=== PATIENT | female | born 1965 | race African-American/Black ===

== ENCOUNTER 2018-02-10 16:49 | Inpatient (IN) | payer OTHER ==
[2018-02-10] MEDS ORDERED: LABETALOL HCL 20MG INJ IV (17:30)
[2018-02-10 17:31] LABS: ADD MAN DIFF? NO
[2018-02-10 17:33] LABS: WHITE BLOOD COUNT 5.2 10^3/ul (4.8-10.8)
[2018-02-10 17:33] LABS: BASOPHIL # 0.1 10^3/ul (0.0-0.1); BASOPHILS % 1.2 % (0.0-2.0); EOSINOPHILS # 0.3 10^3/ul (0.0-0.5); EOSINOPHILS % 5.8 % (0.0-7.0); HEMOGLOBIN 9.7 g/dl (12.0-16.0); LYMPHOCYTES # 1.4 10^3/ul (0.8-2.9); LYMPHOCYTES % 27.4 % (15.0-51.0); MEAN CORPUSCULAR HEMOGLOBIN 27.6 pg (29.0-33.0); MEAN CORPUSCULAR HGB CONC 32.3 g/dl (32.0-37.0); MEAN CORPUSCULAR VOLUME 85.5 fl (82.0-101.0); MEAN PLATELET VOLUME 10.3 fl (7.4-10.4); MONOCYTE # 0.6 10^3/ul (0.3-0.9); MONOCYTES % 10.8 % (0.0-11.0); NEUTROPHIL # 2.8 10^3/ul (1.6-7.5); NEUTROPHILS % 54.6 % (39.0-77.0); PLATELET COUNT 217 10^3/UL (140-415); RED BLOOD COUNT 3.51 10^6/ul (4.20-5.40); RED CELL DISTRIBUTION WIDTH 16.7 % (11.5-14.5)
[2018-02-10] MEDS: NICARDipine HCL 30 MG CAPSULE PO (17:35)
[2018-02-10] MEDS: DIPHENHYDRAMINE 25 MG CAP PO (17:36)
[2018-02-10 17:54] LABS: ALANINE AMINOTRANSFERASE 27 IU/L (13-69); ALBUMIN/GLOBULIN RATIO 1.29; ALKALINE PHOSPHATASE 224 IU/L (42-121); ANION GAP 21 (8-16); ASPARTATE AMINO TRANSFERASE 21 IU/L (15-46); BLOOD UREA NITROGEN 70 mg/dl (7-20); CALCIUM 8.9 mg/dl (8.4-10.2); CARBON DIOXIDE 28 mmol/L (21-31); CHLORIDE 98 mmol/L (97-110); CREATININE 9.51 mg/dl (0.44-1.00); GLUCOSE 121 mg/dl (70-220); LIPASE 82 U/L (23-300); SODIUM 141 mmol/L (135-144); TOTAL PROTEIN 7.1 g/dl (6.1-8.1)
[2018-02-10 17:56] LABS: POTASSIUM 5.5 mmol/L (3.5-5.1)
[2018-02-10 18:05] LABS: TROPONIN-I 0.055 ng/ml (0.000-0.120)
[2018-02-10] MEDS ORDERED: LABETALOL HCL 20MG INJ (18:10)
[2018-02-10] MEDS: ACETAMINOPHEN 325 MG TAB PO (18:19)
[2018-02-10] MEDS: LABETALOL HCL 20MG INJ IV (18:19)
[2018-02-10 18:46] LABS: PHOSPHORUS 8.9 mg/dl (2.5-4.9)
[2018-02-10] MEDS: hydrOXYzine HCL 25 MG TAB PO (18:54)
[2018-02-10] MEDS: DIPHENHYDRAMINE 50 MG INJ IV (19:34)
[2018-02-11] MEDS: NA POLYST SULFON 15 GM/60 ML BTL PO (00:38)
[2018-02-11] MEDS: hydrALAzine 20 MG INJ IV ×2 (00:38→16:04)
[2018-02-11] MEDS: DIPHENHYDRAMINE 50 MG INJ IV ×4 (00:38→17:38)
[2018-02-11] MEDS: ACETAMINOPHEN 325 MG TAB PO (00:39)
[2018-02-11] MEDS ORDERED: LABETALOL 200 MG TAB PO ×2 (05:00→09:00)
[2018-02-11] MEDS: LABETALOL 100 MG TAB PO ×2 (05:08→23:53)
[2018-02-11] MEDS: HYDROCODONE/APAP (5/325) TAB PO (05:09)
[2018-02-11] MEDS ORDERED: LABETALOL 100 MG TAB PO (09:00)
[2018-02-11 09:50] LABS: ANION GAP 21 (8-16); BLOOD UREA NITROGEN 72 mg/dl (7-20); CALCIUM 8.5 mg/dl (8.4-10.2); CARBON DIOXIDE 26 mmol/L (21-31); CHLORIDE 99 mmol/L (97-110); CREATININE 9.85 mg/dl (0.44-1.00); GLUCOSE 142 mg/dl (70-220); POTASSIUM 4.9 mmol/L (3.5-5.1); SODIUM 141 mmol/L (135-144)
[2018-02-11] MEDS ORDERED: SODIUM CHLORIDE 0.9% 1L BAG IV (12:30)
[2018-02-11] MEDS ORDERED: ALBUMIN HUMAN 25% 100 ML IV (12:30)
[2018-02-11] MEDS: NIFEdipine (XL) 30 MG TAB PO (13:08)
[2018-02-11] MEDS: morphine 2 MG INJ IV (14:14)
[2018-02-11 15:33] LABS: HEPATITIS B SURFACE ANTIGEN NEGATIVE (NEGATIVE)
[2018-02-11 15:50] LABS: HEPATITIS B SURFACE ANTIBODY POSITIVE (NEGATIVE)
[2018-02-11] MEDS: SEVELAMER CARBONATE 800 MG TABLET PO (17:38)
[2018-02-11] MEDS: CYPROHEPTADINE 4 MG TAB PO ×2 (18:00→22:00)
[2018-02-11] MEDS: LORAZEPAM 2 MG INJ IV (18:19)
[2018-02-11] MEDS: QUETIAPINE 100 MG TAB PO (18:19)
[2018-02-11] MEDS: LEVETIRACETAM 500 MG TAB PO (21:37)
[2018-02-11] MEDS: FUROSEMIDE 40 MG TAB PO (21:38)
[2018-02-12] MEDS: CYPROHEPTADINE 4 MG TAB PO (06:00)
[2018-02-12] MEDS: PANTOPRAZOLE (EC) 40 MG TAB PO (06:35)
[2018-02-12] MEDS: QUETIAPINE 100 MG TAB PO (09:51)
[2018-02-12] MEDS: SEVELAMER CARBONATE 800 MG TABLET PO ×3 (09:51→17:40)
[2018-02-12] MEDS: LABETALOL 100 MG TAB PO ×2 (09:52→20:41)
[2018-02-12] MEDS: NIFEdipine (XL) 30 MG TAB PO (09:52)
[2018-02-12] MEDS: FUROSEMIDE 40 MG TAB PO ×2 (09:53→20:40)
[2018-02-12] MEDS: LEVETIRACETAM 500 MG TAB PO ×2 (09:53→20:40)
[2018-02-12] MEDS: DIPHENHYDRAMINE 50 MG INJ IV ×3 (10:41→20:51)
[2018-02-12] MEDS: morphine 2 MG INJ IV ×3 (10:43→21:48)
[2018-02-12] MEDS: LORAZEPAM 2 MG INJ IV ×2 (11:23→23:25)
[2018-02-12] MEDS: MEGESTROL (40 MG/ML) 10ML CUP PO ×2 (15:42→20:39)
[2018-02-13] MEDS: DIPHENHYDRAMINE 50 MG INJ IV ×4 (00:27→22:36)
[2018-02-13] MEDS: morphine 2 MG INJ IV ×2 (01:48→08:09)
[2018-02-13] MEDS: PANTOPRAZOLE (EC) 40 MG TAB PO (06:04)
[2018-02-13] MEDS: SEVELAMER CARBONATE 800 MG TABLET PO ×3 (08:08→18:42)
[2018-02-13] MEDS: MEGESTROL (40 MG/ML) 10ML CUP PO (08:09)
[2018-02-13] MEDS: LEVETIRACETAM 500 MG TAB PO ×2 (08:09→20:29)
[2018-02-13] MEDS: QUETIAPINE 100 MG TAB PO (08:09)
[2018-02-13] MEDS: LORAZEPAM 2 MG INJ IV ×2 (08:46→20:32)
[2018-02-13] MEDS: NIFEdipine (XL) 30 MG TAB PO (09:00)
[2018-02-13] MEDS: FUROSEMIDE 40 MG TAB PO ×2 (09:00→20:29)
[2018-02-13] MEDS: LABETALOL 100 MG TAB PO ×2 (09:00→20:28)
[2018-02-13 15:05] LABS: ADD MAN DIFF? NO
[2018-02-13 15:08] LABS: WHITE BLOOD COUNT 3.7 10^3/ul (4.8-10.8)
[2018-02-13 15:08] LABS: BASOPHILS % 0.5 % (0.0-2.0); EOSINOPHILS # 0.1 10^3/ul (0.0-0.5); EOSINOPHILS % 3.5 % (0.0-7.0); HEMATOCRIT 27.3 % (37.0-47.0); HEMOGLOBIN 8.9 g/dl (12.0-16.0); LYMPHOCYTES # 0.9 10^3/ul (0.8-2.9); LYMPHOCYTES % 24.9 % (15.0-51.0); MEAN CORPUSCULAR HEMOGLOBIN 27.7 pg (29.0-33.0); MEAN CORPUSCULAR HGB CONC 32.6 g/dl (32.0-37.0); MEAN PLATELET VOLUME 10.2 fl (7.4-10.4); MONOCYTE # 0.3 10^3/ul (0.3-0.9); MONOCYTES % 7.5 % (0.0-11.0); NEUTROPHIL # 2.4 10^3/ul (1.6-7.5); NEUTROPHILS % 63.3 % (39.0-77.0); PLATELET COUNT 196 10^3/UL (140-415); RED BLOOD COUNT 3.21 10^6/ul (4.20-5.40); RED CELL DISTRIBUTION WIDTH 17.4 % (11.5-14.5)
[2018-02-13 15:29] LABS: ANION GAP 14 (8-16); BLOOD UREA NITROGEN 45 mg/dl (7-20); CALCIUM 7.9 mg/dl (8.4-10.2); CARBON DIOXIDE 31 mmol/L (21-31); CHLORIDE 100 mmol/L (97-110); CREATININE 6.52 mg/dl (0.44-1.00); GLUCOSE 174 mg/dl (70-220); POTASSIUM 4.6 mmol/L (3.5-5.1); SODIUM 140 mmol/L (135-144)
[2018-02-13 16:25] LABS: HEMOGLOBIN A1C 6.8 % (0-5.9)
[2018-02-13] MEDS ORDERED: metFORMIN 500 MG TAB PO (18:00)
[2018-02-13] MEDS: morphine LIQ (10 MG/5 ML) CUP PO (18:50)
[2018-02-13] MEDS: hydrALAzine 20 MG INJ IV (21:54)
[2018-02-14] MEDS: morphine LIQ (10 MG/5 ML) CUP PO ×4 (00:10→23:39)
[2018-02-14] MEDS: DIPHENHYDRAMINE 50 MG INJ IV ×4 (03:54→21:35)
[2018-02-14] MEDS: PANTOPRAZOLE (EC) 40 MG TAB PO (06:44)
[2018-02-14 07:45] LABS: ANION GAP 17 (8-16); BLOOD UREA NITROGEN 32 mg/dl (7-20); CALCIUM 8.2 mg/dl (8.4-10.2); CARBON DIOXIDE 29 mmol/L (21-31); CHLORIDE 98 mmol/L (97-110); CREATININE 5.36 mg/dl (0.44-1.00); GLUCOSE 194 mg/dl (70-220); POTASSIUM 4.5 mmol/L (3.5-5.1); SODIUM 139 mmol/L (135-144)
[2018-02-14] MEDS: SEVELAMER CARBONATE 800 MG TABLET PO ×3 (07:50→18:23)
[2018-02-14] MEDS: FUROSEMIDE 40 MG TAB PO ×2 (07:51→21:35)
[2018-02-14] MEDS: LEVETIRACETAM 500 MG TAB PO ×2 (07:51→21:34)
[2018-02-14] MEDS: QUETIAPINE 100 MG TAB PO (07:51)
[2018-02-14] MEDS: LABETALOL 100 MG TAB PO ×2 (07:51→21:35)
[2018-02-14] MEDS: NIFEdipine (XL) 30 MG TAB PO (07:52)
[2018-02-14] MEDS: LORAZEPAM 2 MG INJ IV (23:39)
[2018-02-15] MEDS: PANTOPRAZOLE (EC) 40 MG TAB PO (06:21)
[2018-02-15] MEDS: DIPHENHYDRAMINE 50 MG INJ IV ×4 (06:24→23:23)
[2018-02-15] MEDS: NIFEdipine (XL) 30 MG TAB PO (08:50)
[2018-02-15] MEDS: FUROSEMIDE 40 MG TAB PO ×2 (08:50→20:54)
[2018-02-15] MEDS: SEVELAMER CARBONATE 800 MG TABLET PO ×3 (08:51→18:13)
[2018-02-15] MEDS: QUETIAPINE 100 MG TAB PO (08:51)
[2018-02-15] MEDS: LABETALOL 100 MG TAB PO ×2 (08:51→20:54)
[2018-02-15] MEDS: LEVETIRACETAM 500 MG TAB PO ×2 (08:51→20:54)
[2018-02-15] MEDS: LORAZEPAM 2 MG INJ IV (09:00)
[2018-02-15] MEDS: morphine LIQ (10 MG/5 ML) CUP PO (20:55)
[2018-02-16] MEDS: DIPHENHYDRAMINE 50 MG INJ IV ×2 (05:25→09:36)
[2018-02-16] MEDS: PANTOPRAZOLE (EC) 40 MG TAB PO (06:09)
[2018-02-16] MEDS: QUETIAPINE 100 MG TAB PO (08:51)
[2018-02-16] MEDS: LABETALOL 100 MG TAB PO ×2 (08:52→20:27)
[2018-02-16] MEDS: SEVELAMER CARBONATE 800 MG TABLET PO ×3 (08:52→17:49)
[2018-02-16] MEDS: FUROSEMIDE 40 MG TAB PO ×2 (08:52→20:28)
[2018-02-16] MEDS: LEVETIRACETAM 500 MG TAB PO ×2 (08:52→20:27)
[2018-02-16] MEDS: NIFEdipine (XL) 30 MG TAB PO (08:53)
[2018-02-16] MEDS: morphine LIQ (10 MG/5 ML) CUP PO (13:06)
[2018-02-17] MEDS: DIPHENHYDRAMINE 50 MG INJ IV ×4 (03:13→19:15)
[2018-02-17] MEDS: PANTOPRAZOLE (EC) 40 MG TAB PO (06:39)
[2018-02-17] MEDS: SEVELAMER CARBONATE 800 MG TABLET PO ×3 (09:31→17:47)
[2018-02-17] MEDS: LEVETIRACETAM 500 MG TAB PO ×2 (09:32→20:58)
[2018-02-17] MEDS: NIFEdipine (XL) 30 MG TAB PO (09:32)
[2018-02-17] MEDS: QUETIAPINE 100 MG TAB PO (09:32)
[2018-02-17] MEDS: FUROSEMIDE 40 MG TAB PO ×2 (09:36→20:59)
[2018-02-17] MEDS: LABETALOL 100 MG TAB PO (09:37)
[2018-02-17] MEDS: morphine LIQ (10 MG/5 ML) CUP PO (10:19)
[2018-02-17] MEDS: LABETALOL 200 MG TAB PO (21:00)
[2018-02-18] MEDS: DIPHENHYDRAMINE 50 MG INJ IV ×4 (01:35→18:29)
[2018-02-18] MEDS: morphine LIQ (10 MG/5 ML) CUP PO ×2 (03:57→20:33)
[2018-02-18] MEDS: PANTOPRAZOLE (EC) 40 MG TAB PO (06:30)
[2018-02-18] MEDS: SEVELAMER CARBONATE 800 MG TABLET PO ×3 (08:22→18:26)
[2018-02-18] MEDS: LORAZEPAM 2 MG INJ IV ×2 (08:58→21:06)
[2018-02-18] MEDS: NIFEdipine (XL) 30 MG TAB PO (09:00)
[2018-02-18] MEDS: LABETALOL 200 MG TAB PO ×2 (09:00→20:32)
[2018-02-18] MEDS: FUROSEMIDE 40 MG TAB PO ×2 (09:00→20:32)
[2018-02-18 09:22] LABS: ADD MAN DIFF? NO
[2018-02-18 09:25] LABS: WHITE BLOOD COUNT 4.8 10^3/ul (4.8-10.8)
[2018-02-18 09:25] LABS: BASOPHILS % 0.8 % (0.0-2.0); EOSINOPHILS # 0.3 10^3/ul (0.0-0.5); EOSINOPHILS % 6.2 % (0.0-7.0); HEMATOCRIT 26.3 % (37.0-47.0); HEMOGLOBIN 8.3 g/dl (12.0-16.0); LYMPHOCYTES # 1.2 10^3/ul (0.8-2.9); LYMPHOCYTES % 24.1 % (15.0-51.0); MEAN CORPUSCULAR HEMOGLOBIN 27.3 pg (29.0-33.0); MEAN CORPUSCULAR HGB CONC 31.6 g/dl (32.0-37.0); MEAN CORPUSCULAR VOLUME 86.5 fl (82.0-101.0); MONOCYTE # 0.7 10^3/ul (0.3-0.9); MONOCYTES % 15.4 % (0.0-11.0); NEUTROPHIL # 2.6 10^3/ul (1.6-7.5); NEUTROPHILS % 53.3 % (39.0-77.0); PLATELET COUNT 143 10^3/UL (140-415); RED BLOOD COUNT 3.04 10^6/ul (4.20-5.40); RED CELL DISTRIBUTION WIDTH 16.7 % (11.5-14.5)
[2018-02-18] MEDS: LEVETIRACETAM 500 MG TAB PO ×2 (09:49→20:32)
[2018-02-18] MEDS: QUETIAPINE 100 MG TAB PO (09:50)
[2018-02-18 09:56] LABS: ANION GAP 19 (8-16); BLOOD UREA NITROGEN 65 mg/dl (7-20); CALCIUM 9.3 mg/dl (8.4-10.2); CARBON DIOXIDE 26 mmol/L (21-31); CHLORIDE 101 mmol/L (97-110); CREATININE 7.46 mg/dl (0.44-1.00); GLUCOSE 155 mg/dl (70-220); SODIUM 140 mmol/L (135-144)
[2018-02-18 10:03] LABS: POTASSIUM 6.4 mmol/L (3.5-5.1)
[2018-02-18] MEDS: NA POLYST SULFON 15 GM/60 ML BTL PO (11:55)
[2018-02-19] MEDS: hydrALAzine 20 MG INJ IV (02:26)
[2018-02-19] MEDS: DIPHENHYDRAMINE 50 MG INJ IV ×3 (05:16→22:34)
[2018-02-19 05:58] LABS: ADD MAN DIFF? NO
[2018-02-19 06:09] LABS: BASOPHILS % 0.6 % (0.0-2.0); EOSINOPHILS # 0.2 10^3/ul (0.0-0.5); EOSINOPHILS % 5.1 % (0.0-7.0); HEMATOCRIT 27.4 % (37.0-47.0); HEMOGLOBIN 8.7 g/dl (12.0-16.0); LYMPHOCYTES # 1.1 10^3/ul (0.8-2.9); LYMPHOCYTES % 24.3 % (15.0-51.0); MEAN CORPUSCULAR HEMOGLOBIN 27.2 pg (29.0-33.0); MEAN CORPUSCULAR HGB CONC 31.8 g/dl (32.0-37.0); MEAN CORPUSCULAR VOLUME 85.6 fl (82.0-101.0); MEAN PLATELET VOLUME 11.1 fl (7.4-10.4); MONOCYTE # 0.7 10^3/ul (0.3-0.9); MONOCYTES % 15.1 % (0.0-11.0); NEUTROPHIL # 2.6 10^3/ul (1.6-7.5); NEUTROPHILS % 54.7 % (39.0-77.0); PLATELET COUNT 148 10^3/UL (140-415); RED CELL DISTRIBUTION WIDTH 16.5 % (11.5-14.5)
[2018-02-19 06:09] LABS: WHITE BLOOD COUNT 4.7 10^3/ul (4.8-10.8)
[2018-02-19] MEDS: LORAZEPAM 2 MG INJ IV (06:57)
[2018-02-19] MEDS: PANTOPRAZOLE (EC) 40 MG TAB PO (06:57)
[2018-02-19 07:16] LABS: ANION GAP 14 (8-16); BLOOD UREA NITROGEN 42 mg/dl (7-20); CALCIUM 8.8 mg/dl (8.4-10.2); CARBON DIOXIDE 29 mmol/L (21-31); CHLORIDE 101 mmol/L (97-110); CREATININE 5.21 mg/dl (0.44-1.00); GLUCOSE 145 mg/dl (70-220); POTASSIUM 5.8 mmol/L (3.5-5.1); SODIUM 138 mmol/L (135-144)
[2018-02-19] MEDS: SEVELAMER CARBONATE 800 MG TABLET PO ×3 (08:37→17:45)
[2018-02-19] MEDS: NIFEdipine (XL) 30 MG TAB PO (08:40)
[2018-02-19] MEDS: QUETIAPINE 100 MG TAB PO (08:40)
[2018-02-19] MEDS: LABETALOL 200 MG TAB PO ×2 (08:41→21:12)
[2018-02-19] MEDS: LEVETIRACETAM 500 MG TAB PO ×2 (08:41→21:13)
[2018-02-19] MEDS: FUROSEMIDE 40 MG TAB PO ×2 (08:41→21:13)
[2018-02-19] MEDS: NA POLYST SULFON 15 GM/60 ML BTL PO (17:44)
[2018-02-20] MEDS: DIPHENHYDRAMINE 50 MG INJ IV ×2 (03:01→09:18)
[2018-02-20] MEDS: LORAZEPAM 2 MG INJ IV (05:45)
[2018-02-20] MEDS: PANTOPRAZOLE (EC) 40 MG TAB PO ×2 (06:40→09:13)
[2018-02-20] MEDS: SEVELAMER CARBONATE 800 MG TABLET PO ×3 (09:13→13:27)
[2018-02-20] MEDS: LEVETIRACETAM 500 MG TAB PO (09:13)
[2018-02-20] MEDS: QUETIAPINE 100 MG TAB PO (09:13)
[2018-02-20] MEDS: FUROSEMIDE 40 MG TAB PO (09:39)
[2018-02-20] MEDS: LABETALOL 200 MG TAB PO (09:39)
[2018-02-20] MEDS: NIFEdipine (XL) 30 MG TAB PO (09:39)
[2018-02-20] MEDS: LIDOCAINE 1% (MDV) 10 ML INJ INJ (12:20)
[2018-02-20] MEDS: LIDOCAINE 1% (MDV) 20 ML INJ INJ (12:21)
[2018-02-21] MEDS ORDERED: QUETIAPINE 100 MG TAB PO (21:00)
== END 2018-02-20 16:55 | disposition home or self-care (01) | DRG 304 ==
LOC: 6WM 20:09 → 2NE 23:53 → E/R 16:49 → 2NE 02-11 20:45
PROC: 5A1D70Z Performance of Urinary Filtration, Intermittent, Less than 6 Hours Per Day (ICD-10-PCS; principal; 2018-02-12)
DX: I16.0 Hypertensive urgency (principal); N18.6 End stage renal disease; L29.9 Pruritus, unspecified; I12.0 Hypertensive chronic kidney disease with stage 5 chronic kidney disease or end stage renal disease; E11.22 Type 2 diabetes mellitus with diabetic chronic kidney disease; Z99.2 Dependence on renal dialysis; E83.39 Other disorders of phosphorus metabolism; E78.5 Hyperlipidemia, unspecified; E87.5 Hyperkalemia; D63.1 Anemia in chronic kidney disease; K29.70 Gastritis, unspecified, without bleeding; G40.909 Epilepsy, unspecified, not intractable, without status epilepticus; M79.662 Pain in left lower leg; M79.661 Pain in right lower leg; F32.89 Other specified depressive episodes
CPT/HCPCS: 36415; 71045; 74018; 80048; 80053; 82962; 83036; 83690; 84100; 84443; 84484; 85025; 86706; 87340; 90935; 93005; 93970; 96374; 96375; 99291-25